=== PATIENT | male | born 1930 | race Caucasian/White ===

== ENCOUNTER 2022-01-16 16:51 | Inpatient (IN) | payer MEDICARE ==
[2022-01-16 17:51] LABS: HEMATOCRIT 36.2 % (42.0-52.0); HEMOGLOBIN 12.3 g/dl (13.5-17.5); MEAN CORPUSCULAR HEMOGLOBIN 32.3 pg (27.0-33.0); PLATELET COUNT, AUTOMATED 172 10^3/uL (150-450); RED BLOOD COUNT 3.81 10^6/uL (4.30-6.10); WHITE BLOOD COUNT 6.1 10^3/uL (4.0-10.0)
[2022-01-16 18:27] LABS: RSV AMPLIFICATION NEGATIVE (NEGATIVE)
[2022-01-16 19:08] LABS: ALBUMIN 3.6 GM/DL (3.2-5.2); ALT/SGPT 59 U/L (12-78); BILIRUBIN,DIRECT 0.2 MG/DL (0.0-0.2); BILIRUBIN,TOTAL 0.3 MG/DL (0.2-1.0); BLOOD UREA NITROGEN 16 MG/DL (7-18); CALCIUM LEVEL 8.2 MG/DL (8.8-10.2); CARBON DIOXIDE LEVEL 28 MEQ/L (21-32); CHLORIDE LEVEL 110 MEQ/L (98-107); CREATININE FOR GFR 0.92 MG/DL (0.70-1.30); ETHYL ALCOHOL (ETHANOL) < 0.003 % (0.000-0.010); GLOMERULAR FILTRATION RATE > 60.0 (>35); GLUCOSE, FASTING 121 MG/DL (70-100); SALICYLATE LEVEL < 1.7 MG/DL (5.0-30.0); SODIUM LEVEL 144 MEQ/L (136-145); TOTAL PROTEIN 6.1 GM/DL (6.4-8.2)
[2022-01-16] MEDS ORDERED: FLOM0.4C39 PO (19:32)
[2022-01-16] MEDS ORDERED: ENSUMIS6 PO (19:32)
[2022-01-16] MEDS ORDERED: ROSU40TA4 PO (19:32)
[2022-01-16] MEDS ORDERED: THERTAB52 PO (19:32)
[2022-01-16] MEDS ORDERED: VITA100093 PO (19:32)
[2022-01-16] MEDS ORDERED: PERI0.126 PO (19:32)
[2022-01-16] MEDS ORDERED: BUSP5TA PO (19:32)
[2022-01-16] MEDS ORDERED: ZOLO100T PO (19:32)
[2022-01-16] MEDS ORDERED: [UNRECOGNIZED DRUG - CODE] PO (19:32)
[2022-01-16] MEDS ORDERED: HOME MED LIST COMPLETE! XX SCH (19:35)
[2022-01-16 20:53] LABS: AMPHETAMINES LEVEL URINE NEGATIVE (NEGATIVE); BARBITURATES URINE NEGATIVE (NEGATIVE); BENZODIAZEPINES URINE NEGATIVE (NEGATIVE); CANNABINOIDS URINE NEGATIVE (NEGATIVE); COCAINE METABOLITE URINE NEGATIVE (NEGATIVE); METHADONE URINE NEGATIVE (NEGATIVE); OPIATES URINE NEGATIVE (NEGATIVE); PHENCYCLIDINE URINE NEGATIVE (NEGATIVE)
[2022-01-16 20:54] LABS: ACETAMINOPHEN LEVEL < 2.0 UG/ML (0.0-30.0)
[2022-01-16 21:52] LABS: FREE T4 0.64 NG/DL (0.76-1.46)
[2022-01-16] MEDS: QUEtiapine FUMARATE 25 MG TAB PO SCH (22:55)
[2022-01-16] MEDS: ROSUVASTATIN 10 MG TAB (CRESTOR) PO SCH (22:56)
[2022-01-16] MEDS: HALOPERIDOL 5MG/ML VIAL (J1630 PER 1) IM PRN (23:21)
[2022-01-16 23:55] VITALS: BP 172/70
[2022-01-17] MEDS ORDERED: hydrALAZINE 20MG/ML 1ML VIAL (J0360 PER 20MG) IV ONE (00:05)
[2022-01-17 01:40] VITALS: BP 158/84
[2022-01-17 03:00] VITALS: BP 170/80
[2022-01-17] MEDS ORDERED: hydrALAZINE 20MG/ML 1ML VIAL (J0360 PER 20MG) IV PRN (03:10)
[2022-01-17] MEDS ORDERED: LORazepam 2 MG/ML VIAL IV STA (03:49)
[2022-01-17 04:30] VITALS: BP 151/59
[2022-01-17] MEDS: LEVOTHYROXINE 50MCG TABLET (0.05MG) PO SCH (05:16)
[2022-01-17 08:00] VITALS: BP 152/66
[2022-01-17] MEDS: ENOXAPARIN 40MG/0.4ML SYRINGE (J1650 PER 10MG) SC SCH (08:00)
[2022-01-17] MEDS: SERTRALINE 100 MG TAB PO SCH (08:38)
[2022-01-17] MEDS: TAMSULOSIN 0.4 MG CAP PO SCH (08:38)
[2022-01-17] MEDS: HALOPERIDOL 5MG/ML VIAL (J1630 PER 1) IM PRN (19:07)
[2022-01-17 20:00] VITALS: BP 153/70
[2022-01-17] MEDS: ROSUVASTATIN 10 MG TAB (CRESTOR) PO SCH (20:29)
[2022-01-17] MEDS: ACETAMINOPHEN TAB 650MG DOSE (2X325MG) PO PRN (20:29)
[2022-01-17] MEDS: QUEtiapine FUMARATE 25 MG TAB PO SCH (20:29)
[2022-01-18] MEDS: LEVOTHYROXINE 50MCG TABLET (0.05MG) PO SCH (05:47)
[2022-01-18 06:00] VITALS: BP 137/74
[2022-01-18] MEDS: SERTRALINE 100 MG TAB PO SCH (08:57)
[2022-01-18] MEDS: ENOXAPARIN 40MG/0.4ML SYRINGE (J1650 PER 10MG) SC SCH (08:58)
[2022-01-18] MEDS: TAMSULOSIN 0.4 MG CAP PO SCH (08:58)
[2022-01-18 14:00] VITALS: BP 157/72
[2022-01-18] MEDS: QUEtiapine FUMARATE 25 MG TAB PO SCH (20:05)
[2022-01-18] MEDS: ROSUVASTATIN 10 MG TAB (CRESTOR) PO SCH (20:06)
[2022-01-18] MEDS: ACETAMINOPHEN TAB 650MG DOSE (2X325MG) PO PRN (20:06)
[2022-01-18 22:00] VITALS: BP 152/70
[2022-01-19] MEDS: LEVOTHYROXINE 50MCG TABLET (0.05MG) PO SCH (05:25)
[2022-01-19 06:00] VITALS: BP 125/68
[2022-01-19 07:23] LABS: BASO # 0.1 10^3/uL (0.0-0.2); BASO % 0.8 % (0.0-1.0); EOS # 0.3 10^3/uL (0.0-0.5); EOS % 4.1 % (0.0-3.0); HEMATOCRIT 39.2 % (42.0-52.0); HEMOGLOBIN 13.4 g/dl (13.5-17.5); LYMPH # 1.7 10^3/uL (1.5-5.0); LYMPH % 22.7 % (24.0-44.0); MEAN CORPUSCULAR HEMOGLOBIN 31.8 pg (27.0-33.0); MEAN CORPUSCULAR HGB CONC 34.2 g/dl (32.0-36.5); MEAN CORPUSCULAR VOLUME 92.9 fl (80.0-96.0); MONO # 0.8 10^3/uL (0.0-0.8); MONO % 11.1 % (2.0-8.0); NEUTROPHILS # 4.6 10^3/uL (1.5-8.5); PLATELET COUNT, AUTOMATED 178 10^3/uL (150-450); RED BLOOD COUNT 4.22 10^6/uL (4.30-6.10); WHITE BLOOD COUNT 7.5 10^3/uL (4.0-10.0)
[2022-01-19 07:46] LABS: BLOOD UREA NITROGEN 20 MG/DL (7-18); CARBON DIOXIDE LEVEL 24 MEQ/L (21-32); CHLORIDE LEVEL 114 MEQ/L (98-107); CREATININE FOR GFR 0.86 MG/DL (0.70-1.30); GLOMERULAR FILTRATION RATE > 60.0 (>35); GLUCOSE, FASTING 88 MG/DL (70-100); MAGNESIUM LEVEL 2.2 MG/DL (1.8-2.4); POTASSIUM SERUM 3.9 MEQ/L (3.5-5.1); SODIUM LEVEL 143 MEQ/L (136-145)
[2022-01-19] MEDS: ENOXAPARIN 40MG/0.4ML SYRINGE (J1650 PER 10MG) SC SCH (09:58)
[2022-01-19] MEDS: SERTRALINE 100 MG TAB PO SCH (09:58)
[2022-01-19] MEDS: TAMSULOSIN 0.4 MG CAP PO SCH (09:58)
[2022-01-19] MEDS ORDERED: LEVO50TA5 PO (13:47)
[2022-01-19] MEDS ORDERED: QUET1TAB17 PO (13:47)
[2022-01-19 14:00] VITALS: BP 125/63
[2022-01-19] MEDS: ACETAMINOPHEN TAB 650MG DOSE (2X325MG) PO PRN (19:20)
[2022-01-19] MEDS: QUEtiapine FUMARATE 25 MG TAB PO SCH (19:20)
[2022-01-19] MEDS: ROSUVASTATIN 10 MG TAB (CRESTOR) PO SCH (19:21)
[2022-01-20] MEDS: LEVOTHYROXINE 50MCG TABLET (0.05MG) PO SCH (05:15)
[2022-01-20 06:00] VITALS: BP 157/68
[2022-01-20 08:20] LABS: BASO # 0.1 10^3/uL (0.0-0.2); BASO % 0.8 % (0.0-1.0); EOS # 0.4 10^3/uL (0.0-0.5); EOS % 4.8 % (0.0-3.0); HEMATOCRIT 40.6 % (42.0-52.0); HEMOGLOBIN 13.8 g/dl (13.5-17.5); LYMPH # 1.5 10^3/uL (1.5-5.0); LYMPH % 20.8 % (24.0-44.0); MEAN CORPUSCULAR HEMOGLOBIN 31.4 pg (27.0-33.0); MEAN CORPUSCULAR VOLUME 92.3 fl (80.0-96.0); MONO # 0.9 10^3/uL (0.0-0.8); MONO % 11.6 % (2.0-8.0); NEUTROPHILS # 4.5 10^3/uL (1.5-8.5); NEUTROPHILS % 61.7 % (36.0-66.0); PLATELET COUNT, AUTOMATED 175 10^3/uL (150-450); WHITE BLOOD COUNT 7.3 10^3/uL (4.0-10.0)
[2022-01-20 08:40] LABS: BLOOD UREA NITROGEN 18 MG/DL (7-18); CALCIUM LEVEL 8.9 MG/DL (8.8-10.2); CARBON DIOXIDE LEVEL 26 MEQ/L (21-32); CHLORIDE LEVEL 111 MEQ/L (98-107); CREATININE FOR GFR 0.85 MG/DL (0.70-1.30); GLOMERULAR FILTRATION RATE > 60.0 (>35); GLUCOSE, FASTING 91 MG/DL (70-100); MAGNESIUM LEVEL 2.1 MG/DL (1.8-2.4); SODIUM LEVEL 142 MEQ/L (136-145)
[2022-01-20] MEDS: TAMSULOSIN 0.4 MG CAP PO SCH (10:25)
[2022-01-20] MEDS: SERTRALINE 100 MG TAB PO SCH (10:25)
[2022-01-20] MEDS: ENOXAPARIN 40MG/0.4ML SYRINGE (J1650 PER 10MG) SC SCH (10:25)
[2022-01-20] MEDS: ACETAMINOPHEN TAB 650MG DOSE (2X325MG) PO PRN (11:55)
[2022-01-20] MEDS: HALOPERIDOL 5MG/ML VIAL (J1630 PER 1) IM PRN (19:41)
[2022-01-20] MEDS: QUEtiapine FUMARATE 25 MG TAB PO SCH (19:41)
[2022-01-20] MEDS: ROSUVASTATIN 10 MG TAB (CRESTOR) PO SCH (19:41)
[2022-01-21] MEDS ORDERED: diphenhydrAMINE 50MG/ML VIAL (J1200) IM ONE (03:00)
[2022-01-21] MEDS ORDERED: OLANZapine INTRAMUSCULAR 10MG VIAL IM ONE (03:00)
[2022-01-21] MEDS: LEVOTHYROXINE 50MCG TABLET (0.05MG) PO SCH (05:55)
[2022-01-21 06:00] VITALS: BP 178/90
[2022-01-21 06:58] LABS: HEMATOCRIT 37.9 % (42.0-52.0); HEMOGLOBIN 13.1 g/dl (13.5-17.5); MEAN CORPUSCULAR HEMOGLOBIN 32.2 pg (27.0-33.0); MEAN CORPUSCULAR HGB CONC 34.6 g/dl (32.0-36.5); MEAN CORPUSCULAR VOLUME 93.1 fl (80.0-96.0); PLATELET COUNT, AUTOMATED 183 10^3/uL (150-450); RED BLOOD COUNT 4.07 10^6/uL (4.30-6.10)
[2022-01-21] MEDS ORDERED: amLODIPine 5 MG TAB PO SCH (07:20)
[2022-01-21 07:31] LABS: BLOOD UREA NITROGEN 17 MG/DL (7-18); CALCIUM LEVEL 9.2 MG/DL (8.8-10.2); CARBON DIOXIDE LEVEL 26 MEQ/L (21-32); CHLORIDE LEVEL 112 MEQ/L (98-107); CREATININE FOR GFR 0.81 MG/DL (0.70-1.30); GLOMERULAR FILTRATION RATE > 60.0 (>35); GLUCOSE, FASTING 87 MG/DL (70-100); POTASSIUM SERUM 3.7 MEQ/L (3.5-5.1); SODIUM LEVEL 144 MEQ/L (136-145)
[2022-01-21] MEDS ORDERED: AMLO1TAB24 PO (09:05)
[2022-01-21] MEDS: TAMSULOSIN 0.4 MG CAP PO SCH (09:13)
[2022-01-21] MEDS: SERTRALINE 100 MG TAB PO SCH (09:13)
[2022-01-21] MEDS: ENOXAPARIN 40MG/0.4ML SYRINGE (J1650 PER 10MG) SC SCH (09:15)
[2022-01-21 09:16] VITALS: BP 166/75
[2022-01-21 09:38] VITALS: BP 98/68
[2022-01-21 10:20] VITALS: BP 158/71
== END 2022-01-21 11:00 | DRG 884 ==
LOC: EDBD 16:51 → M ED 16:51 → M ED INP 21:23 → ENRESERV 22:17 → M PCU 23:41 → M MS5PR 01-17 13:40
PROVIDERS: ADMIT Family Medicine; ATTEND Internal Medicine
DX: F03.91 Unspecified dementia, unspecified severity, with behavioral disturbance (principal); N13.30 Unspecified hydronephrosis; E78.5 Hyperlipidemia, unspecified; M48.00 Spinal stenosis, site unspecified; Z66 Do not resuscitate; Z20.822 Contact with and (suspected) exposure to COVID-19; E03.9 Hypothyroidism, unspecified; N40.1 Benign prostatic hyperplasia with lower urinary tract symptoms; Z79.899 Other long term (current) drug therapy; T18.4XXA Foreign body in colon, initial encounter; N13.9 Obstructive and reflux uropathy, unspecified; R33.9 Retention of urine, unspecified

== ENCOUNTER → 2022-01-26 | Outpatient (REF) | payer MEDICARE ==
[~2022-01-26] MED LIST: AMLO1TAB24 PO; BUSP5TA PO; ENSUMIS6 PO; FLOM0.4C39 PO; LEVO50TA5 PO; PERI0.126 PO; QUET1TAB17 PO; ROSU40TA4 PO; THERTAB52 PO; VITA100093 PO; ZOLO100T PO; [UNRECOGNIZED DRUG - CODE] PO
== END ==
LOC: SKLAB8 12:06
PROVIDERS: ATTEND Neuromusculoskeletal Medicine & OMM
DX: Z53.8 Procedure and treatment not carried out for other reasons (principal)

== ENCOUNTER → 2022-02-01 | Outpatient (REF) | payer MEDICARE ==
[2022-02-01 13:48] LABS: APPEARANCE, URINE CLOUDY (CLEAR); BACTERIA, URINE AUTO 3+ (NEGATIVE); BILIRUBIN, URINE AUTO NEGATIVE (NEGATIVE); BLOOD, URINE BLOOD 3+ (NEGATIVE); COLOR, URINE YELLOW (YELLOW); GLUCOSE, URINE (UA) AUTO NEGATIVE (NEGATIVE); GRANULAR CAST, URINE AUTO 1 /LPF; KETONE, URINE AUTO NEGATIVE (NEGATIVE); LEUKOCYTE ESTERASE, URINE AUTO 2+ (NEGATIVE); NITRITE, URINE AUTO POSITIVE (NEGATIVE); PROTEIN, URINE AUTO 2+ mg/dL (NEGATIVE); RBC, URINE AUTO TNTC /HPF (0-3); SPECIFIC GRAVITY URINE AUTO 1.017 (1.002-1.035); SQUAMOUS EPITHELIAL CELL UR AU 0 /HPF (0-6); WBC, URINE AUTO 70 /HPF (0-3)
== END ==
LOC: SKLAB3 11:36
PROVIDERS: ATTEND Nurse Practitioner Family
DX: F03.91 Unspecified dementia, unspecified severity, with behavioral disturbance (principal); Z79.899 Other long term (current) drug therapy

== ENCOUNTER → 2022-02-08 | Outpatient (REF) | payer MEDICARE ==
[2022-02-08 11:19] LABS: HEMATOCRIT 30.7 % (42.0-52.0); HEMOGLOBIN 10.2 g/dl (13.5-17.5); MEAN CORPUSCULAR HEMOGLOBIN 32.1 pg (27.0-33.0); MEAN CORPUSCULAR HGB CONC 33.2 g/dl (32.0-36.5); MEAN CORPUSCULAR VOLUME 96.5 fl (80.0-96.0); PLATELET COUNT, AUTOMATED 257 10^3/uL (150-450); RED BLOOD COUNT 3.18 10^6/uL (4.30-6.10); WHITE BLOOD COUNT 22.2 10^3/uL (4.0-10.0)
[2022-02-08 12:30] LABS: ALBUMIN 2.6 GM/DL (3.2-5.2); ALT/SGPT 53 U/L (12-78); BILIRUBIN,TOTAL 0.5 MG/DL (0.2-1.0); BLOOD UREA NITROGEN 48 MG/DL (7-18); CALCIUM LEVEL 8.4 MG/DL (8.8-10.2); CARBON DIOXIDE LEVEL 22 MEQ/L (21-32); CHLORIDE LEVEL 114 MEQ/L (98-107); CREATININE FOR GFR 1.18 MG/DL (0.70-1.30); GLOMERULAR FILTRATION RATE > 60.0 (>35); GLUCOSE, FASTING 106 MG/DL (70-100); POTASSIUM SERUM 3.8 MEQ/L (3.5-5.1); SODIUM LEVEL 145 MEQ/L (136-145); TOTAL PROTEIN 5.2 GM/DL (6.4-8.2)
== END ==
LOC: SKLAB3 10:27
PROVIDERS: ATTEND Nurse Practitioner Family
DX: R63.4 Abnormal weight loss (principal)